=== PATIENT | female | born 1955 | race Caucasian/White ===

== ENCOUNTER 2018-08-08 20:56 | Emergency (ER) | payer OTHER ==
[2018-08-08 21:02] VITALS: TEMP 96; O2SAT 99
[2018-08-08] MEDS ORDERED: APAP/HYDROCODONE 1 EACH TABLET PO ONE (21:31)
[2018-08-08] MEDS ORDERED: APAP/HYDROCODONE 1 EACH TABLET ONE (21:33)
[2018-08-08 23:22] VITALS: BP 126/64; PULSE 63; RESP 18
== END 2018-08-08 23:10 | disposition home or self-care (01) | DRG 563 ==
LOC: ED 20:56
DX: S52.531A Colles' fracture of right radius, initial encounter for closed fracture (principal); W19.XXXA Unspecified fall, initial encounter
CPT/HCPCS: 29125; 73090; 73110; 99284; A9270-GY